=== PATIENT | female | born 1975 | race Caucasian/White ===

== ENCOUNTER → 2017-08-01 11:40 | Outpatient (CLI) | payer OTHER, SELFPAY ==
--- NOTE | 2017-08-01 11:40 | DT_ITS ---
This patient was seen during an EMR downtime July 25, 2017 - August 01, 2017. This patient may have a combination of paper and electronic documentation or all paper documentation. All documentation is viewable within the e-chart portion of mAPPn for each patient visit.
[2017-08-09 15:45] LABS: HPV Reflexed? NOT INDICATED
== END ==
PROVIDERS: Visit Provider Obstetrics & Gynecology
DX: Z12.4 Encounter for screening for malignant neoplasm of cervix (principal)
CPT/HCPCS: 88175; G0145

== ENCOUNTER → 2018-09-07 | Outpatient (CLI) | payer OTHER, SELFPAY ==
[2018-09-14 12:50] LABS: HPV Reflexed? NOT INDICATED
== END | disposition home or self-care (01) ==
LOC: LABSPEC 14:36
PROVIDERS: PCP Family Medicine; Visit Provider Obstetrics & Gynecology
DX: Z12.4 Encounter for screening for malignant neoplasm of cervix (principal)
CPT/HCPCS: 88175; G0145

== ENCOUNTER → 2018-10-25 | Outpatient (CLI) | payer OTHER, SELFPAY ==
--- NOTE | 2018-10-24 | IMM_PTH ---
PATIENT: DIANNE MARTE LOC: [facility] U#:[id number] AGE/SX: 43/F ROOM: RE10/25/[address]: Dr. Nicki Dyer MD : 1975 BED: DIS: 10/25/2018 SPEC #: [id number] RECD: 10/26/18 12:20 STATUS: HUEY REWiyl #: [id number] VIRAJ: 10/24/18 00:[address]: Nicki Dyer DEPT: IMMUNOHISTOCHEMISTRY RECD BY: Gifty Cruz ENTERED: 10/26/18 12:21 SP TYPE: IMMUNO OTHR DR: Dr. Kalen Santamaria MD Tissues: Uterine cervix, NOS Procedures: p16 (initial) KI-67 (add) PHYSICIAN & [place] [id number] SPECIMEN INFORMATION: Tissue Source: Cervical biopsy at 12 o'clock Clinical Info: OTIS Specimen Number: [id number] CPT code: 00521, 57175 METHODOLOGY: Deparaffinized sections of prefer/formalin-fixed tissue or PAP/DQ stained slides are incubated with monoclonal/polyclonal antibodies/oligonucleotide probes. Localization is made via biotin free immunoperoxidase method. Appropriate controls are performed and reacted as expected. Results on target cell population are indicated in the following table: RESULTS: ANTIBODY / CLONE RESULT P16 (E6H4) positive, focal and patchy Ki-67 (30-9) positive, low These tests were developed and their performance characteristics determined by [facility]. They may not have been cleared or approved by the U.S. Food and Drug Administration. The FDA has determined that such clearance or approval is not necessary. INTERPRETATION: Cervix, 12 o'clock, biopsy: Mild squamous dysplasia. LEONARDO:dax 10/26/18
--- NOTE | 2018-10-24 17:10 | CER_PTH ---
PATIENT: DIANNE MARTE LOC: [facility] U#:[id number] AGE/SX: 43/F ROOM: RE10/25/[address]: Dr. Nicki Dyer MD : 1975 BED: DIS: 10/25/2018 SPEC #: [id number] RECD: 10/25/18 10:35 STATUS: HUEY REYNAGA #: [id number] VIRAJ: 10/24/18 17:[address]: Nicki Dyer DEPT: SURGICAL PATHOLOGY RECD BY: Carlos Zaragoza ENTERED: 10/25/18 11:27 SP TYPE: CERV OTHR DR: Dr. Kalen Santamaria MD Tissues: Uterine cervix, NOS Procedures: Surgery Specimen Level IV HEADER OPERATION: Colposcopy PRE-OP DIAGNOSIS: LGSIL pap 09/04/18 TISSUE SUBMITTED: Cervical biopsy at 12 o'clock MICROSCOPIC DIAGNOSIS Cervix, 12 o'clock, biopsy: Mild squamous dysplasia with HPV changes (LGSIL and NIDHI I). Moderate acute and chronic inflammation. See comment. SJ:dax 10/26/18 COMMENT Immunohistochemistry ([id number]) for surrogate HPV marker (p16) supports the above diagnosis. MICROSCOPIC DESCRIPTION Slides are reviewed. GROSS DESCRIPTION Received in fixative is one container labeled with the patient's name and designated cervical biopsy at 12 o'clock. The specimen consists of two irregular fragments of light sandoval soft tissue that in aggregate measure 0.8 x 0.6 x 0.1 cm. The specimen is totally submitted in one cassette. / AM:dax 10/25/18 TC:5 CPT: 30085
== END | disposition home or self-care (01) ==
LOC: LABSPEC 11:06
PROVIDERS: Family Provider Family Medicine; PCP Family Medicine; Referring Provider Obstetrics & Gynecology; Visit Provider Obstetrics & Gynecology
DX: N87.0 Mild cervical dysplasia (principal)
CPT/HCPCS: 88305; 88341; 88342

== ENCOUNTER → 2019-09-11 | Outpatient (CLI) | payer OTHER, SELFPAY ==
[2019-09-17 14:08] LABS: HPV Genotype 16, Aptima Negative (Negative)
[2019-09-17 15:25] LABS: HPV APTIMA, High Risk Positive (Negative); HPV Genotype 18,45 Aptima Negative (Negative)
== END | disposition home or self-care (01) ==
LOC: LABSPEC 13:22
PROVIDERS: PCP Family Medicine; Visit Provider Obstetrics & Gynecology
DX: Z12.4 Encounter for screening for malignant neoplasm of cervix (principal)
CPT/HCPCS: 87624; 88175; G0145

== ENCOUNTER → 2019-10-10 15:30 | Outpatient (CLI) | payer OTHER, SELFPAY ==
--- NOTE | 2019-10-10 | IMM_PTH ---
PATIENT: DIANNE MARTE LOC: [facility] U#:[id number] AGE/SX: 49/F ROOM: RE10/10/[address]: Dr. Cyndy Vera MD : 1975 BED: DIS: SPEC #: [id number] RECD: 10/12/19 11:21 STATUS: HUEY REWily #: [id number] VIRAJ: 10/10/19 00:[address]: Cyndy Eduardo DEPT: IMMUNOHISTOCHEMISTRY RECD BY: Gifty Cruz ENTERED: 10/12/19 11:23 SP TYPE: IMMUNO OTHR DR: Dr. Kalen Santamaria MD Tissues: A - Uterine cervix, NOS B - Uterine cervix, NOS Procedures: p16 (initial) KI-67 (add) PHYSICIAN & INSTITUTION [place] [id number] SPECIMEN INFORMATION: Tissue Source: A - Cervical biopsy at 6 o'clock, B - Cervical biopsy at 12 o'clock Clinical Info: Positive HR/HPV, friable cervix Specimen Number: [id number] A & B CPT code: 03564 x2, 63941 x2 METHODOLOGY: Deparaffinized sections of prefer/formalin-fixed tissue or PAP/DQ stained slides are incubated with monoclonal/polyclonal antibodies/oligonucleotide probes. Localization is made via biotin free immunoperoxidase method. Appropriate controls are performed and reacted as expected. Results on target cell population are indicated in the following table: RESULTS: ANTIBODY / CLONE RESULT Block A P16 (E6H4) positive, focal minimal patchy staining Ki-67 (30-9) negative Block B P16 (E6H4) negative Ki-67 (30-9) negative These tests were developed and their performance characteristics determined by [facility]. They may not have been cleared or approved by the U.S. Food and Drug Administration. The FDA has determined that such clearance or approval is not necessary. The above immunohistochemical/dualISH markers are ordered and reviewed by the Pathologist. INTERPRETATION: A. Cervix at 6 o'clock, biopsy: Negative for dysplasia. B. Cervix at 12 o'clock, biopsy: Negative for dysplasia. LEONARDO:dax 10/15/19
--- NOTE | 2019-10-10 15:30 | CER_PTH ---
PATIENT: DIANNE MARTE LOC: [facility] U#:[id number] AGE/SX: 49/F ROOM: RE10/10/[address]: Dr. Cyndy Vera MD : 1975 BED: DIS: SPEC #: [id number] RECD: 10/10/19 17:09 STATUS: HUEY JUHI #: [id number] VIRAJ: 10/10/19 15:[address]: Cyndy Eduardo DEPT: SURGICAL PATHOLOGY RECD BY: Carlos Zaragoza ENTERED: 10/11/19 09:32 SP TYPE: CERV OTHR DR: Dr. Kalen Santamaria MD Tissues: A - Uterine cervix, NOS B - Uterine cervix, NOS C - Endometrial cavity Procedures: Surgery Specimen Level IV HEADER OPERATION: Colposcopy PRE-OP DIAGNOSIS: Positive HR/HPV; friable cervix, Lugol's resistance TISSUE SUBMITTED: A - Cervical biopsy at 6 o'clock, B - Cervical biopsy at 12 o'clock, C - ECC MICROSCOPIC DIAGNOSIS A. Cervix, 6 o'clock, biopsy: Moderate to marked chronic inflammation, mild acute inflammation and reactive epithelial changes. Negative for dysplasia. See comment. B. Cervix, 12 o'clock, biopsy: Moderate to marked chronic inflammation, mild acute inflammation and reactive epithelial changes. Negative for dysplasia. See comment. C. ECC: Fragments of benign endocervical epithelium, blood and mucous, negative for dysplasia. Scant strips of benign endometrial epithelium. LEONARDO:dax 10/12/19 COMMENT A & B. Immunohistochemistry ([id number]) for surrogate HPV marker (p16) supports the above diagnosis. Please make reference to previous specimen ([id number]) cervix, 12 o'clock, biopsy with diagnosis of mild squamous dysplasia with HPV changes. MICROSCOPIC DESCRIPTION Slides are reviewed. GROSS DESCRIPTION A - Received in fixative is one container labeled with the patient's name and designated cervical biopsy at 6 o'clock. The specimen consists of multiple irregular fragments of light sandoval soft tissue that in aggregate measure 1 x 0.4 x 0.1 cm. The specimen is totally submitted in one cassette. B - Received in fixative is one container labeled with the patient's name and designated cervical biopsy at 12 o'clock. The specimen consists of multiple irregular fragments of light sandoval soft tissue that in aggregate measure 0.5 x 0.5 x 0.1 cm. The specimen is totally submitted in one cassette. C - Received in fixative is one container labeled with the patient's name and designated ECC. The specimen consists of multiple fragments of hemorrhagic soft tissue that in aggregate measure 0.3 x 0.3 x 0.1 cm. The specimen is totally submitted in one cassette. / SJ:rg 10/11/19 TC:3 CPT: 75677 x3
== END ==
PROVIDERS: PCP Family Medicine; Referring Provider Obstetrics & Gynecology; Visit Provider Obstetrics & Gynecology
DX: N72 Inflammatory disease of cervix uteri (principal)
CPT/HCPCS: 88305; 88341; 88342

== ENCOUNTER → 2020-02-19 11:35 | Outpatient (CLI) | payer OTHER, SELFPAY ==
[2020-02-19 15:05] LABS: Hematocrit 41.7 % (37-47); Hemoglobin 13.3 g/dL (12.0-15.0); Mean Corp Hgb Conc 31.9 g/dL (32-36); Mean Corpuscular Hgb 32.6 pg (27.0-32.0); Mean Corpuscular Volume 102.2 fL (81-99); Mean Platelet Vol. 9.5 fl (6.2-12.0); Platelet Count 339 K/mm3 (150-450); RBC Distribution Width CV 12.2 % (11.6-14.6); RBC Distribution Width SD 46.2 fl (35.1-43.9); Red Blood Count 4.08 M/mm3 (4.2-5.4); White Blood Count 8.1 K/mm3 (4.4-11.0)
== END ==
PROVIDERS: PCP Family Medicine; Referring Provider Family Medicine; Visit Provider Family Medicine
DX: K92.2 Gastrointestinal hemorrhage, unspecified (principal)
CPT/HCPCS: 36415; 85027

== ENCOUNTER 2020-07-24 14:49 | Outpatient (RCR) | payer OTHER, SELFPAY | END 2020-09-12 23:59 | LOC: IMMUN 14:49 | PROVIDERS: PCP Family Medicine; Visit Provider Family Medicine | DX: Z23 Encounter for immunization (principal) | CPT/HCPCS: 0001A; 91300 ==

== ENCOUNTER → 2020-09-30 15:45 | Outpatient (CLI) | payer OTHER, SELFPAY ==
[2020-10-03 22:13] LABS: HPV APTIMA, High Risk Negative (Negative)
== END ==
PROVIDERS: PCP Family Medicine; Visit Provider Obstetrics & Gynecology
DX: Z12.4 Encounter for screening for malignant neoplasm of cervix (principal)
CPT/HCPCS: 87624; 88175; G0145

== ENCOUNTER → 2022-03-16 | Outpatient (CLI) | payer OTHER, SELFPAY ==
--- NOTE | 2022-03-16 14:49 | RAD_ITS ---
STUDY: X-RAY - RIGHT FOOT CLINICAL: Female, 46 years old. pain in right toes TECHNIQUE: 3 view(s) of the foot. COMPARISON: None. FINDINGS: Normal talus, calcaneus, and tarsal bones. Normal visualized subtalar, talonavicular, calcaneocuboid, tarsal and tarsometatarsal articulations. Normal metatarsi. There is degenerative arthrosis of the metatarsophalangeal joint of the hallux . Normal tibial and fibular sesamoid bones. Normal interphalangeal joint of the great toe. Normal phalanges of the great toe. Normal second through fifth metatarsophalangeal joints. Normal interphalangeal joints and phalanges of the lesser toes. The soft tissue structures are unremarkable. RAD/Foot min 3 Views IMPRESSION: DJD great toe Electronically Signed: William Macdonald MD at 20:46 EST ,
[2022-03-16 18:27] LABS: Absolute Lymphocyte Count 2.63 X10^3/uL (0.83-4.51); Basophil# 0.07 X10^3/uL; Basophil% 0.7 % (0-1); Eosinophil# 0.34 X10^3/uL; Eosinophils% 3.5 % (0-5); Erythrocyte Sedimentation Rate 5 mm/hr (0-30); Hematocrit 39.6 % (37-47); Hemoglobin 13.3 g/dL (12.0-15.0); Lymphocyte # 2.63 X10^3/ul (0.83-4.51); Lymphocyte % 27.4 % (19-41); Mean Corp Hgb Conc 33.6 g/dL (32-36); Mean Corpuscular Hgb 33.8 pg (27.0-32.0); Mean Corpuscular Volume 100.8 fL (81-99); Mean Platelet Vol. 9.8 fl (6.2-12.0); Monocyte# 0.57 X10^3/uL; Monocyte% 5.9 % (0-10); NRBC Flagged by Analyzer 0 % (0-5); Neutrophil # 5.97 X10^3/uL (2.7-7.7); Neutrophil % 62.2 % (47-70); Platelet Count 298 K/mm3 (150-450); RBC Distribution Width CV 12.4 % (11.6-14.6); RBC Distribution Width SD 46.5 fl (35.1-43.9); Red Blood Count 3.93 M/mm3 (4.2-5.4); White Blood Count 9.6 K/mm3 (4.4-11.0)
[2022-03-16 19:12] LABS: Anion Gap 11 (5-15); BUN 13 mg/dL (7-18); BUN/Creat Ratio 19.1 RATIO (10-20); CRP 3.56 mg/L (0.0-3.0); Calcium,Total 8.9 mg/dL (8.5-10.1); Chloride 103 mmol/L (98-107); Cholesterol 196 mg/dL (200); Creatinine, Serum 0.68 mg/dL (0.55-1.02); EST Glomerular Filtration Rate 99 mL/min (>60); Est Glom Filt Rate - Afr Amer 120 mL/min (>60); Glucose 104 mg/dL (74-106); High Density Lipoprotein 77 mg/dL; Potassium 3.3 mmol/L (3.5-5.1); Sodium Level 138 mmol/L (136-145); Thyroid Stim Hormone (TSH) 0.95 uIU/mL (0.358-3.74); Triglycerides 129 mg/dL; Very Low Density Lipoprotein 26 mg/dL (5-40)
[2022-03-18 17:37] LABS: ANTINUCLEAR ANTIBODIES DIRECT Negative (Negative)
== END | disposition home or self-care (01) ==
PROVIDERS: PCP Family Medicine; Referring Provider Family Medicine; Visit Provider Family Medicine
DX: Z00.00 Encounter for general adult medical examination without abnormal findings (principal); M79.674 Pain in right toe(s); M25.50 Pain in unspecified joint; Z13.220 Encounter for screening for lipoid disorders
CPT/HCPCS: 36415; 73630; 80048; 80061; 84443; 85025; 85652; 86038; 86140; 86431

== ENCOUNTER 2025-01-21 08:00 | Outpatient (RCR) | payer OTHER, SELFPAY ==
--- NOTE | 2025-01-21 09:00 | BH.SGPN.GN ---
Behaviors/Verbalizations/Mental Status: [] Eye contact is good. Motor activity is appropriate. Appearance is casual. Speech is Appropriate. Mood is depressed and anxious. Affect is congruent. Thoughts are linear and logical. No evidence of psychosis. Reviewed daily check in sheet and no reports of suicidal ideations Client Response/Progress/Benefit: [] Pt participated when prompted. Attentive. Shared with the group that today is her first day in IOP level of care. Tearful as she was checking in. Briefly introduced herself and her recent mental health struggles which have lead to FMLA from work. No progress noted as today was her first day. Group provided support and guidance on what to expect for her first day which was beneficial. Will continue in IOP to prevent decompensation, stabilize mood, increase healthy coping, and improve functioning to return to work. Narrative Note: []
--- NOTE | 2025-01-21 09:03 | BH.COMM_ITS ---
Communication Note Communication with Client Communication Note: Met with pt to complete initial paperwork. Discussed case with Dr. Vicente and pt will be admitted to [facility] tx with a diagnosis of F41.1 ROMIE.
--- NOTE | 2025-01-21 09:03 | BH.COMM ---
Communication Note Communication with Client Communication Note: Met with pt to complete initial paperwork. Discussed case with Dr. Vicente and pt will be admitted to [facility] tx with a diagnosis of F41.1 ROMIE.
--- NOTE | 2025-01-21 10:10 | BH.SGPN.GN ---
Behaviors/Verbalizations/Mental Status: []Pt alert and oriented, casual appearance. Eye contact good. Motor activity appropriate. Speech within normal limits. Affect congruent, mood anxious. Thoughts linear, logical, no signs of hallucinations or delusions. Client Response/Progress/Benefit: [] Pt responded well to session AEB sharing and listening attentively to others. Group provided examples of types of support (professional, pets, hobbies, community, spouse, melo, etc) as well as benefits of having social support, including: validation, get perspective, and accountability. Pt also participated in group discussion regarding the barriers to accessing support. Pt identified positive supports to include: dad, grandma, friends, animals, and nature. Pt participated in experiential activity illustrating the impact communication, boundaries, and patience play in creating healthy support systems. Pt appeared to benefit from increased knowledge of the benefits of social support and greater self-awareness. Pt to continue IOP to promote healthy coping skills, challenge distorted thoughts, and prevent decompensation.
--- NOTE | 2025-01-21 11:15 | BH.SGPN.GN ---
Behaviors/Verbalizations/Mental Status: [] Client alert and oriented, casually dressed and groomed. Eye contact good. Motor activity appropriate. Speech within normal limits. Affect congruent, mood anxious. Thoughts linear, logical, no signs of hallucinations or delusions. Client Response/Progress/Benefit: [] Client was an active participant throughout AEB contributing to discussion, providing personal examples, and taking notes. Client processed emotions felt in the activity and how they coped in the moment. Client provided input during discussion on the types of support our supports can provide. Client reflected on the types of support their current support system provides. Reported after identifying what type of supports they receive; they gained awareness that they could benefit from more tangible and emotional supports. Client identified steps to achieve this by making a list of what she needs and using opposite action to ask for these needs to be met. Client seemed to benefit from identifying the type of support client needs to work on improving. Client recommended to continue IOP tx to prevent decompensation, reduce racing thoughts, and increase emotional regulation skills. Narrative Note: []
--- NOTE | 2025-01-23 09:00 | BH.SGPN.GN ---
Behaviors/Verbalizations/Mental Status: [] Pt alert and oriented, Casually dressed and groomed. Eye contact good. Motor activity appropriate. Speech within normal limits. Affect congruent, mood depressed. Thoughts linear, logical, no signs of hallucinations or delusions. Reviewed pt?s symptom tracker today, denies suicidal ideation, plan, and intent.01/23/25 Client Response/Progress/Benefit: []Pt was an active participant in group discussions. Attentive. Per patients daily symptom tracker, pt indicates a 3/5 for depression and a 4/5 for anxiety, with 5 being severe. Pt struggled to come up with mental health positives, stating that this was her second day in group. She was able to come up with two mental health positives after some encouragement from the therapist. Pt's mental health positives were showing up for group, and her who is supportive of her coming to IOP. Pt reported some marital struggles in the past, stating that her and her almost , so it was important to her to have his support. Pt's stressor was feeling stuck and struggling with deciding whether or not she is going to go back to work after IOP. Pt stated that she does not want to go back to her job, but worries about finances and her future if she does not. Pt was supportive and attentive to others in the group. Pt seemed to benefit from support from peers. Will continue IOP tx to promote healthy coping mechanisms, decrease negative thinking patterns, and prevent decompensation.
--- NOTE | 2025-01-23 10:10 | BH.SGPN.GN ---
Behaviors/Verbalizations/Mental Status: [] Eye contact is good. Motor activity is appropriate. Appearance is casual. Speech is Appropriate. Mood is anxious. Affect is congruent. Thoughts are linear and logical. No evidence of psychosis. Client Response/Progress/Benefit: [] Pt was an active participant and responded well to session AEB input and examples during group activity. Group discussed and practiced methods of reframing cognitive distortions. Client participated in identifying cognitive distortions when examples were provided. Client discussed in group the different strategies to overcome the distortions. Client identified cognitive distortion they used most often and made plan to identify and challenge thoughts that contribute to it as homework over the next couple of days. Will continue tx to decrease anxious avoidance, improve healthy coping skills, and prevent decompenation. Narrative Note: []
--- NOTE | 2025-01-23 11:10 | BH.SGPN.GN ---
Behaviors/Verbalizations/Mental Status: []Eye contact is good. Motor activity is appropriate. Appearance is casual. Speech is Appropriate. Mood is hopeful and anxious. Affect is congruent. Thoughts are linear and logical. No evidence of psychosis. Client Response/Progress/Benefit: [] Pt was an active participant and responded well to session AEB input and examples during group activity. Group discussed and practiced methods of reframing cognitive distortions. Pt participated in identifying cognitive distortions when examples were provided. Pt discussed in group the different strategies to overcome the distortions. Pt identified cognitive distortion they use most often which is catastrophizing and pt reports plan to continue working on reframing these thoughts. Pt did well in small group during experiential activity and helped group identify answers. Will continue tx to prevent decompensation, improve daily functioning, and gain healthy coping skills. Narrative Note: []
--- NOTE | 2025-01-23 14:34 | BH.MTP_ITS ---
Master Treatment Plan Patient Information Program Physician:: Dr. Guillermina Vicente Primary Therapist:: Dulce STRICKLAND Psychiatric Diagnoses Psychiatric Diagnoses:: ROMIE F 41.1; MDD, recurrent, moderate, without psyhchosis. Diagnosis Code(s):: F41.1 Estimated LOS Estimated LOS (in weeks):: 6 Problem/Goal #1 Problem/Goal #1 Stated Goal:: Will reduce anxiety and panic symptoms through increasing emotional regulation and distress tolerance skills Description of Barriers: Pt reports history of trauma in childhood and she does not speak with her mother as a result. Pt feels like a failure a lot and often criticizes herself for mistakes/setbacks. Pt has a lot of work and family stress currently. Pt admits to using alcohol to cope with stressors. Functional Impact: Pt is a 49-year-old female with a history of ROMIE and MDD who was referred by her PCP due to worsening anxiety and depression over the past few months. Pt has been off work on [employer] since 01/08/25 as pt is not able to function. Pt currently endorses a depressed mood, worthlessness, negative thinking, and crying spells. Pt also endorses panic attacks, constant worry, racing thoughts, issues with concentration, issues with sleep, and wishing she could not exist due to her constant anxiety/ruminations. Pt noted that she feels like she is failing in multiple areas of her life. Goal Relevant Strengths/Supports: Pt is connected with a PCP and she recently got established with [facility] for individual therapy. Pt reports being motivated and ready to make changes. Objectives Objective #1: Stated Objective: Pt will increase ability to manage stressors and anxiety by gaining 2-3 distress tolerance skills. Interventions: Through group and individual therapy, pt will learn various coping skills to help manage stress and anxiety. Therapist will utilize DBT distress tolerance skills to increase awareness and give pt tools to more ef fectively manage anxiety. Therapist will provide psychoeducation on emotional regulation and help pt identify unhealthy coping skills he wants to change. Discharge Criteria: Pt will have accomplished this goal when can report improved ability to manage stressors and identify at least 2 distress tolerance skills. Target Date: 03/04/25 Review Date: 02/11/25 Status: open Objective #2: Stated Objective: Pt will identify 2-3 anxiety and panic triggers and 2 coping skills to use when feeling anxious or overwhelmed to manage anxiety as shown by reducing DSM-5 scores for anxiety Interventions: Therapist will provide education on anxiety, avoidance behaviors, and maintenance cycles. Therapist will help pt explore personal symptoms and warning signs of anxiety and irritability. Therapist will teach pt coping skills to improve emotional regulation, mindfulness, and distress tolerance to help pt cope with anxiety in the moment. Discharge Criteria: Pt will have accomplished this goal when he can identify at least 2 triggers and report using 2 coping skills to manage anxiety and irritability. Additionally, pt will have accomplished this goal AEB reduction of DSM-5 scores for anxiety. Target Date: 03/04/25 Review Date: 02/11/25 Status: open Problem/Goal #2 Problem/Goal #2 Stated Goal:: Pt will decrease depressive symptoms, inappropriate guilt, worthlessness, and negative self-talk. Description of Barriers: Pt reports history of trauma in childhood and she does not speak with her mother as a result. Pt feels like a failure a lot and often criticizes herself for mistakes/setbacks. Pt has a lot of work and family stress currently. Pt admits to using alcohol to cope with stressors. Functional Impact: Pt is a 49-year-old female with a history of ROMIE and MDD who was referred by her PCP due to worsening anxiety and depression over the past f ew months. Pt has been off work on FMLA since 01/08/25 as pt is not able to function. Pt currently endorses a depressed mood, worthlessness, negative thinking, and crying spells. Pt also endorses panic attacks, constant worry, racing thoughts, issues with concentration, issues with sleep, and wishing she could not exist due to her constant anxiety/ruminations. Pt noted that she feels like she is failing in multiple areas of her life. Goal Relevant Strengths/Supports: Pt is connected with a PCP and she recently got established with [facility] for individual therapy. Pt reports being motivated and ready to make changes. Objectives Objective #1: Stated Objective: Pt will learn and utilize 2-3 healthy coping strategies to better manage depressive symptoms as shown by a decrease of DMS-5 symptoms for depression. Interventions: Through group and individual sessions, therapist will help pt identify triggers and warning signs of depression and guilt including emotional, physical, and behavioral changes. Therapist will teach pt various coping skills to manage symptoms and give pt tangible resources to use to regulate emotions. Therapist will use cognitive restructuring techniques and help pt gain awareness of negative thoughts that reinforce guilt and depression. Therapist will provide psychoeducation on maintenance cycles and help pt learn ways to break unhealthy maintenance cycles. Therapist will help pt incorporate behavioral activation and assist pt in setting SMART goals. Discharge Criteria: Pt will have met this goal when can report learning and using at least 2 coping skills to manage depressive symptoms and reduce isolation. Additionally, pt will have met this goal when pt's DSM-5 scores for depression decrease. Target Date: 03/04/25 Review Date: 02/11/25 Status: open
--- NOTE | 2025-01-23 14:35 | BH.MDN_ITS ---
Multi-Disciplinary Note Note 30-min Individual: Time Started:: 12:05 Date: 01/23/25 Purpose of session/treatment goals addressed:: To gather information on pt's current stressors, symptoms, triggers, history, and tx goals. Another goal was to build rapport and provide emotional support. Eye Contact:: Good Motor Activity:: Appropriate Appearance:: Neat Speech:: Appropriate Mood:: Anxious and Depressed Affect:: Constricted Thoughts:: Linear, Logical and No evidence of hallucinations/delusions noted Staff Interventions:: rapport building, strengths perspective, treatment planning and goal setting Client Response:: Pt responded well to session, open to meeting with therapist. Pt reports she feels that group will be helpful, and she is already connecting a lot with the topics/what peers are sharing. Pt is currently on leave from work which pt stated she feels anxious about because what if people clinical team lead me. However, pt shared she is already working on challenging this and not letting that keep pt from getting the help she deserves. Pt reports she has had anxiety most of her life and she is able to see signs now. Pt noted having a lot of excessive worry even when her children were small. Pt also feels that her unmanaged anxiety was a contributing factor to why her first marriage ended. Pt has two children from her first marriage and in her current marriage she has three stepchildren. Pt is currently and she described her as supportive, but they have had stress in their life lately. Pt shared there has been tension and conflict because of pt's stepchildren. Pt also has a lot of primary work stress that has contributed to her worsening mental health symptoms. 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 Pt identified her IOP tx goals to be reduce guilt and negative thinking towards self, reduce use of alcohol as a coping mechanism, and figure out what path she wants to take with her career. Risks/Concerns:: Pt denies any active suicidal ideation, plan, or intent. Pt denies any thoughts of . Progress Toward Goals/Plan:: Pt's second day of IOP tx and pt reports she is finding benefit in the group setting already. Pt stated she is finding comfort in finding out there's people who think like me out there. Pt noted that she does not have a lot of therapy experience, she shared she tried two sessions and did not go back. Pt was receptive to goal setting and she has already connected an outpatient provider to establish care following IOP discharge in 6-8 weeks. Pt will continue IOP tx to prevent decompensation, improve daily functioning, and gain healthy coping skills. Time Stopped:: 12:25
--- NOTE | 2025-01-25 07:59 | BH.PSY.EVA_ITS ---
Intake Intake Visit Reasons: [facility] Care anxiety and depression Medications ?Medication ?Instructions ?Recorded ?Confirmed ?Type bupropion HCl 150 mg 24 hr tablet, 150 mg PO DAILY 07/1501/25/25 History extended release (Wellbutrin XL) citalopram 40 mg tablet 40 mg DAILY 01/25/25 Histor y hydroxyzine HCl 25 mg tablet 25 mg PO QHS PRN sleep an d anxiety 01/25/25 01/25/25 History omeprazole .ROUTE 01/25/25 History HPI () History of Present Illness History provided by: patient Chief complaint: Establish care anxiety and depression HPI: Dionne is a 49y/o female who presented to [facility] IOP program for further evaluation and treatment of decompensation of anxiety and depression. Patient reportedly has a history of anxiety and depression but presently notes that this is the worst her mental health has been. She has recently had decompensation of her anxiety and depression which led her to go on FMLA from work on 01/08/2025. She was referred to IOP by her PCP Dr. Rodriguez. She notes that her mental health has been declining over the past year and a half. 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 Has been an educator for 24 years and did not feel like she was meeting expectations for her students. 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 Began calling off work in November due to difficulty getting out of bed from her anxiety. Started FMLA paperwork 12/31/2024 because she longer felt she could go back to work due to her mental health. She has had problems with depressed and anxious mood, difficulty sleeping, thoughts of wishing she did not exist. Of note she has been trying to cut down on alochol recently and reports for the past 1-1/2 years she was drinking 3-4 beers about 2 to 3 days during the week and much more on the weekends. Does note additional stressors being 's son and her oldest son as well. Today reports feeling a little bit better. Trying to stay more positive and using coping skills. Sleeping is poor but sometimes takes hydroxyzine at night and it helps her sleep but without it hasn't been sleeping well. Will wake up and be so anxious and worry about everything and not be able to fall back asleep. 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 Reports she is taking citalopram 40mg, which is helpful but wasn't quite enough so her PCP started wellbutrin but she only started taking it consistently the past 4 days. Anhedonia/Decreased interest: +anhedonia Appetite: Pretty normal Sleep: Poor unless she takes hydroxyzine Energy: Poor energy relative to her baseline Concentration: Fine Memory: Fine Crying spells: Yes, usually several times a day SI: No HI: No AH: No VH: No Psychosis: No Kasey: No Anxiety: Severe anxiety about everything, fears about the unknown, anxiety about her job, anxiety about her family Panic attacks: Will have discrete bouts of anxiety OCD: Writes many lists and will restart them if the writing doesn't match, very perfectionistic, will stay up until 2am cleaning Eating d/o hx: No PTSD: Denies hx of nightmares or flashbacks Current psychiatric medications: Citalopram 40mg, bupropion XL 150, hydroxyzine 25mg prn Side effect concerns: No Past psychiatric treatment Hx: -First age experiencing symptoms: Around 16 years ago she had her first panic attack and started medication -Psychiatrist: No -Therapist: Recently established with [facility], will start Tuesday at 230 -Psychiatric hospitalizations: None -Suicide attempts: No -Medication trials: Possibly a different anxiety medication many years ago but she's unsure Medical Hx: -Medical problems: GERD -Surgeries: Appendix out in high school -Allergies: No -Medications: Omeprazole for reflux Substance use Hx: -Alcohol: More than I should. Uses it as unhealthy coping skills. Trying to cut down on it. Usually drinks about 4 drinks a couple times a week -Drugs: No -Tobacco use: No Family Hx: -Mental illness: Mother had mental health problems and a lot of paranoia but she doesn't believe she was ever diagnosed with anything -Suicide attempts or completions: No -Substance Use: No -General medical conditions: Denies Psychosocial: -Born/raised: Born and lived in [place] until kindergarten and then moved to [place] and then [place] and then ultimately back here. Moved around a lot because her dad is in the -Childhood: Had a very difficult time with her mother, mother was accusing her of having an affair with her dad's boss and would drive past his house looking for her car, patient denies that this ever happened and that she was only 16 years old -Parents: Hasn't talked to mom since she was 17 because they had a very unhealthy relationship, has a very good relationship with her father, they talk multiple times a day -Siblings: Has a younger sister who is also a teacher and lives in [place], 3 step brothers -Current living situation and location: Lives in [place] with her and his 27 year old son who is currently living in their upstairs. He recently broke his leg due to a motorcycle accident and her is waiting on him hand and foot which has caused a lot of stress -Marital status: , currently on her second marriage, he is in his 60's. Has been from previous has been 14 years -Children: He has 3 children, she has 2 children, a son and daughter. She gets along with her daughter well, her son is 25 and doesn't have a good relationship with him after her divorce. 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 Came to her new job in September and reportedly took on the jobs of 3 behavioral specialists and is struggling with his current job. Has been in the field for 24 years. 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 Now looking for alternative jobs she can get with her degree -Taoism affiliation: Zoroastrianism - hx: No -Access to guns: collects guns -Legal problems: DUI 5 years ago, had to do classes for it Medical ROS: General: Denies fever HENT: Denies headache EYES: Denies acute changes in vision Resp: denies shortness of breath Cardiac: Denies chest pain GI: denies changes in bowel, denies nausea/vomiting : Denies changes in urination MSK: Denies weakness Neuro: Denies any numbness/tingling Heme: Denies any bleeding or bruising Skin: Denies rashes Psychiatric: As above Exam () Mental Status Exam- Psych () Appearance casually dressed, adequately groomed and no apparent distress Attitude cooperative and calm Activity/Motor Behavior MSE activity/motor behavior finding no adventitious movements Speech regular rate and regular volume Mood other (Tearful) Affect full range Thought Process linear and logical Thought Content no delusions and no hallucinations Suicidal Ideation none Homicidal Ideation none Attention intact Concentration intact Sensorium/Orientation awake and alert Memory/Cognition intact Insight fair Judgement fair Assessment & Plan () Assessment & Plan (1) ROMIE (generalized anxiety disorder): Plan: High levels of anxiety across multiple situations impacting her functioning and is associated with sleep disturbance, fatigue. She is presently on 40mg of Celexa and has historically found this helpful, just started taking Wellbutrin over the past 4 days more consistently. Sometimes this can increase anxiety but does not seem to be the case at this time as she reports she is doing little bit better. Will continue patient on the 40 of citalopram and 150 of BuSpar, can always uptitrate if needed or adjust regimen moving forward if needed. Plan The patient will begin IOP in Behavioral Health at [facility]. The program's structure, support, education, and therapy aim to prevent deterioration of symptoms and avoid the need for PHP or inpatient hospitalization. I have a reasonable expectation that the patient will make practical improvements in their presenting symptoms and will be discharged to a lower level of care. Charges/Coding Multi Select Codes Behavior Health Behavior Health Psychiatric Evaluation: 29917 Psych Diag Exam w/ Medical Services
--- NOTE | 2025-01-25 08:53 | BH.DR.ITP ---
Initial Treatment Plan Patient Information Visit Information: ADMISSION DATE: EXPECTED LOS: 6-8 weeks Diagnoses:: ROMIE Problems/Symptoms Problem #1:: ROMIE Symptom:: High levels of anxiety across multiple situations impacting her functioning and is associated with sleep disturbance, fatigue
--- NOTE | 2025-01-25 09:00 | BH.SGPN.GN ---
Behaviors/Verbalizations/Mental Status: [] Pt alert and oriented, Casually dressed and groomed. Eye contact good. Motor activity appropriate. Speech within normal limits. Affect congruent, mood anxious. Thoughts linear, logical, no signs of hallucinations or delusions. Reviewed pt?s symptom tracker today, denies suicidal ideation, plan, and intent.01/25/25 Client Response/Progress/Benefit: []Pt was an active participant in group discussions. Attentive. Per patients daily symptom tracker, pt indicates a 2/5 for depression and a 2/5 for anxiety, with 5 being severe. Pt's first mental health positive was not drinking when she was home alone as a coping mechanism to deal with her anxiety, stating that she does not have a problem with drinking, but will use it as her first line of defense when feeling anxious. Pt stated that she knew that drinking would not really help her deal with her anxiety. Pt's other mental health win was going out to dinner with friends, and driving into town without getting too anxious. Pt's stressor is being off of work, stating that her coworkers are getting overwhelmed due to her being on leave, making her feel anxious and guilty. Pt was supportive and attentive to others in the group. Pt seemed to benefit from support from peers. Will continue IOP tx to promote healthy coping mechanisms, decrease negative thinking patterns, and prevent decompensation.
--- NOTE | 2025-01-25 10:15 | BH.SGPN.GN ---
Behaviors/Verbalizations/Mental Status: [] Eye contact is good. Motor activity is appropriate. Appearance is casual. Speech is Appropriate. Mood is euthymic. Affect is congruent. Thoughts are linear and logical. No evidence of psychosis. Client Response/Progress/Benefit: [] Client was an active participant during interactive group discussions. Attentive during psychoeducation on the six types of boundaries (physical, emotional, intellectual, sexual, time, and material). Along with peers contributed to interactive discussion on defining what a boundary is in mental health. Client along with peers identified challenges to setting boundaries which included; fear of other's response, guilt, fear of rejection, fear of disappointing the other person, feeling like one is unworthy to set boundaries, etc. Client along with peers identified the benefits to setting boundaries such as increased confidence, decreased stress, increased time for self-care, and better quality of life. Group discussed the mental health benefits to establishing boundaries at work, school, and home. Client benefited from increased awareness and insight on the importance/benefit to setting health boundaries. Will continue in IOP to prevent decompensation, stabilize anxiety, and improve functioning. Narrative Note: []
--- NOTE | 2025-01-25 11:15 | BH.SGPN.GN ---
Behaviors/Verbalizations/Mental Status: [] Eye contact is good. Motor activity is appropriate. Appearance is casual. Speech is Appropriate. Mood is euthymic. Affect is congruent. Thoughts are linear and logical. No evidence of psychosis. Client Response/Progress/Benefit: [] Client responded well to session AEB listening attentively to peers, providing input, as well as taking notes throughout. Participated in group discussion brainstorming various strategies for improving healthy boundary setting. Client reports wanting to begin using skill of writing pros and cons list to improve overall ability to establish and maintain healthy boundaries. Seemed to benefit from increased awareness of how different boundary styles can impact mental health. Will continue IOP tx to increase consistent application of skills, increase self-care and anxiety management, and prevent decompensation. Narrative Note: []
--- NOTE | 2025-01-30 09:05 | BH.SGPN.GN ---
Behaviors/Verbalizations/Mental Status: [] Eye contact is good. Motor activity is appropriate. Appearance is casual. Speech is Appropriate. Mood is depressed and anxious. Affect is congruent. Thoughts are linear and logical. No evidence of psychosis. Reviewed daily check in sheet and no reports of suicidal ideations Client Response/Progress/Benefit: [] Pt was an active participant in group discussions. Attentive. Tearful during her check-in. ? I don?t know what I?m doing with my life?. Shared erratic emotions and numerous situational stressors ?that I?m not handling well?. According to pt she benefits from IOP and group support which keeps her from isolation. ? It?s nice to talk with people who are like me?. Limited progress noted. Benefited from group support, encouragement, and feedback. Will continue in IOP to prevent decompensation, increase healthy coping, and improve functioning Narrative Note: []
--- NOTE | 2025-01-30 10:15 | BH.SGPN.GN ---
Behaviors/Verbalizations/Mental Status: []Eye contact is good. Motor activity is appropriate. Appearance is neat. Speech is Appropriate. Mood is euthymic. Affect is congruent. Thoughts are linear and logical. No evidence of psychosis Client Response/Progress/Benefit: [] Pt was an active participant in group discussions AEB listening attentively to others and providing feedback at times. Participated in and was engaged during experiential activity. Able to relate activity to group topic of FOF. Engaged during interactive discussion on what failure means to the group in which peers identified and defined failure. Group was able to identify impact of fear of failure on mental health. Attentive during interactive discussion on the role that FOF plays in mental wellness, depression, anxiety, and growth. Pt reported fear of failure has kept pt from leaving her job to try something new. Benefited from increased awareness of how the role that FOF plays in mental health and decision-making. Will continue in IOP to prevent decompensation, gain healthy coping skills, and improve daily functioning. Narrative Note: []
--- NOTE | 2025-01-30 11:15 | BH.SGPN.GN ---
Behaviors/Verbalizations/Mental Status: []Client alert and oriented, casually dressed and groomed. Eye contact good. Motor activity appropriate. Speech within normal limits. Affect constricted, mood depressed. Thoughts linear, logical, no signs of hallucinations or delusions. Client Response/Progress/Benefit: [] Pt responded well to session, engaged in the experiential activity and attentive throughout group processing. Pt reported fear of failure has kept Pt from quitting drinking and going back to school. Pt completed fear of failure worksheet and was able to identify thoughts and behaviors that reinforce personal fear of failure including all or nothing thinking. Pt participated in small group discussion regarding strategies to overcome fear of failure. Identified wanting to practice telling herself ?I?m not the star in other people?s life.? Appeared to benefit from increased knowledge of strategies to combat fear of failure and gaining self-awareness. Pt will continue IOP tx to prevent decompensation, improve daily functioning, and increase self-confidence. Narrative Note: []
--- NOTE | 2025-01-31 09:05 | BH.SGPN.GN ---
Behaviors/Verbalizations/Mental Status: [] Eye contact is good. Motor activity is appropriate. Appearance is casual. Speech is Appropriate. Mood is anxious. Affect is congruent. Thoughts are linear and logical. No evidence of psychosis. Reviewed daily check in sheet and no reports of suicidal ideations Client Response/Progress/Benefit: [] Pt participated at times during the group discussions. Attentive. Tearful during check-in. Reports she had a ? 3 hour panic attack? last night which was triggered by catastrophizing thoughts regarding her daughter. ? I thought I was going to have to go to the ER?. ? It was insane?. Feeling ? blah? today. No progress noted. Benefited form group support and encouragement. Will continue in IOP to prevent decompensation, stabilize anxiety, and improve functioning to return to work. Narrative Note: []
--- NOTE | 2025-01-31 10:10 | BH.SGPN.GN ---
Behaviors/Verbalizations/Mental Status: [] Client alert and oriented, casually dressed and groomed. Eye contact good. Motor activity appropriate. Speech within normal limits. Affect congruent, mood anxious. Thoughts linear, logical, no signs of hallucinations or delusions. Client Response/Progress/Benefit: [] Client responded well to session, attentive during psychoeducation on SMART goals (Specific, Measurable, Achievable, Realistic, and Time-bound) and engaged in group experiential activity. Participated in an interactive discussion with peers in which they worked together to define what a goal is and the benefits of having goals. Group identified benefits as; helps MH, improves motivation, improves confidence, and personal growth. Participated in interactive discussion in which group identified barriers to setting goals and following through with goals. Group barriers included health, lack of supports, making excuses, and avoidance. Benefited from increased awareness of benefits and strategies for goal-setting. Will continue in IOP tx to decrease anxious thoughts, improve distress tolerance, and prevent decompensation.
--- NOTE | 2025-01-31 11:10 | BH.SGPN.GN ---
Behaviors/Verbalizations/Mental Status: []Pt alert and oriented, neatly dressed and groomed. Eye contact good. Motor activity appropriate. Speech within normal limits. Affect congruent, mood anxious. Thoughts linear, logical, no signs of hallucinations or delusions Client Response/Progress/Benefit: [] Pt was engaged during discussion and willing to complete the worksheet challenging them to develop a personal SMART goal. Pt chose the goal of spending less time ruminating on negative self-talk this week. Pt identified anxiety and unhealthy environment as barriers. Identified solutions such as limiting unnecessary exposure and focusing on positive supports. Pt receptive to identifying solutions for these barriers and willing to begin working on this goal. Benefited from this group by developing a short-term SMART goal related to mental health. Will continue IOP tx to prevent decompensation, improve daily functioning, and increase mood stability. ? Narrative Note: []
--- NOTE | 2025-02-01 09:05 | BH.SGPN.GN ---
Behaviors/Verbalizations/Mental Status: []Pt alert and oriented, neatly dressed and groomed. Eye contact good. Motor activity appropriate. Speech within normal limits. Affect congruent, mood anxious. Thoughts linear, logical, no signs of hallucinations or delusions. Reviewed pt?s symptom tracker, no risk for suicidal ideation, plan, or intent 02/01/25. Client Response/Progress/Benefit: []Pt was an active participant in group discussions. Attentive. Able to identify mental health wins including ?I took my medication proactively? and pt feels that her has been trying to help her a lot. Pt also noted she is proud of how she managed after her panic attack. Pt's stressor today is ?I had a panic attack last night, but it helped me realize that I do need to cut out drinking.? The group offered pt suggests managing this stressor and emotional support which pt reported was helpful. Pt is feeling ?positive? this morning. Pt receptive to feedback from peers. Benefited from group support, encouragement, and feedback. Progress noted. Pt will continue IOP tx to prevent decompensation, gain healthy coping skills, and improve self-confidence. ??? Narrative Note: []
--- NOTE | 2025-02-01 11:10 | BH.SGPN.GN ---
Behaviors/Verbalizations/Mental Status: []Eye contact is good. Motor activity is appropriate. Appearance is casual. Speech is Appropriate. Mood is anxious. Affect is congruent. Thoughts are linear and logical. No evidence of psychosis. Client Response/Progress/Benefit: [] Pt was an attentive participant in group discussions and actively engaged during experiential activity. Participated with peers on identifying the connection between the experiential activity and utilization of stress management skills. Attentive during psychoeducation on the 4 A's (Avoid, adapt, alter, accept) of coping with stress. Pt engaged in self-reflection activity in which they identified one of the 4 A's to address one their top stressors. Benefited from increased awareness of stress management strategies. Pt will continue IOP to challenge distorted thoughts, improve consistent use of healthy coping skills, and prevent decompensation.
--- NOTE | 2025-02-01 15:21 | BH.MDN_ITS ---
Multi-Disciplinary Note Note 30-min Individual: Time Started:: 12:25 Date: 02/01/25 Purpose of session/treatment goals addressed:: To work on distress tolerance skills, boundary setting, and thought challenging. Eye Contact:: Good Motor Activity:: Appropriate Appearance:: Neat Speech:: Appropriate Mood:: Euthymic and Anxious Affect:: Congruent Thoughts:: Linear, Logical and No evidence of hallucinations/delusions noted Staff Interventions:: thought challenging, motivational interviewing, CBT techniques, mindfulness skills, strengths perspective and other (boundaries) Client Response:: Pt responded well to session, open to meeting with rosario fernandez. Pt reports she has been enjoying IOP so far, she finds it to be healing being around others who understand mental health. Pt stated her has been trying to be more understanding learn more about anxiety which is nice. Pt shared she had a panic attack two nights ago which had not happened in a while. Pt shared she was worried she would continue having them, but she did not. This helped pt see that drinking might be exacerbating her symptoms and making it harder for her medication to work. Pt reports she has a goal for herself to stop drinking and she plans to start now. Pt shared not going out to the bar with her will be helpful and she also thinks that getting back into exercise will be helpful. Pt noted that she is stressed about next week because of the holidays. Pt has step children and lately there has been a lot of tension, specifically with one of her stepsons because of his substance use and anger when he is drunk. Next week they are supposed to get together for [place] because that is what her wants. Discussed how pt wants to approach this and what she can do to prepare. Pt stated she wants to be there for her because he has been supporting her a lot lately. Pt recognized that she will need boundaries as well as a game plan should thing begin to go poorly. Pt plans to talk with her about this. Risks/Concerns:: Pt denies any active suicidal ideation, plan, or intent. Pt denies any thoughts of . Progress Toward Goals/Plan:: Pt is making progress towards tx goals AEB pt's report of choosing to reduce drinking as it exacerbates mental health symptoms and report of increased self-awareness. Pt also reports benefitting from being around others with similar symptoms and life-experiences. Pt will continue IOP tx to further reduce anxiety symptoms, gain healthy coping skills, and increase self-confidence. Time Stopped:: 12:55
--- NOTE | 2025-02-05 10:10 | BH.SGPN.GN ---
Behaviors/Verbalizations/Mental Status: [] Eye contact is good. Motor activity is appropriate. Appearance is casual. Speech is Appropriate. Mood is anxious. Affect is congruent. Thoughts are linear and logical. No evidence of psychosis. Client Response/Progress/Benefit: [] Pt was engaged and participating throughout, providing input and taking notes. Attentive during psychoeducation on anxiety and cognitive triangle. Participated in an interactive discussion on defining anxiety and identifying cognitive and physiological symptoms of anxiety. The group discussed helpful vs harmful anxiety. Pt along with peers worked together to identify common physical/physiological signs of anxiety which included: increase heart rate, stomach ache, dry mouth, numbness/tingling, shakiness, crying, sweating, etc. Pt identified personal warning signs as hyperventilating. Benefited from increased awareness and insight on anxiety and its impact. Will continue in IOP to prevent decompensation, increase healthy coping, and improve functioning to return to work. Narrative Note: []
--- NOTE | 2025-02-05 11:10 | BH.SGPN.GN ---
Behaviors/Verbalizations/Mental Status: []Eye contact is good. Motor activity is appropriate. Appearance is appropriate. Speech is Appropriate. Mood is anxious and engaged. Affect is congruent. Thoughts are linear and logical. No evidence of psychosis. Client Response/Progress/Benefit: [] Pt was an active participant AEB pt providing input and listening attentively to peers. Attentive during psychoeducation on mindfulness coping skills, body-based coping skills, and mind-based coping skills and their impact on reducing anxiety and improving overall mental health wellness. Group was able to identify self-soothing and mind-based coping skills which included: PMR, deep breathing, opposite action DDD, and meditation. Pt verbalized skill to make effort to use this week as: DDD and thoughts are thoughts not facts. Pt will continue IOP to reduce anxiety, increase self-confidence, and improve daily functioning. Narrative Note: []
--- NOTE | 2025-02-05 13:46 | BH.MDN_ITS ---
Multi-Disciplinary Note Note 30-min Individual: Time Started:: 12:00 Date: 02/05/25 Purpose of session/treatment goals addressed:: To practice mindfulness skills and identify strategies to give pt structure and routine. Eye Contact:: Good Motor Activity:: Appropriate Appearance:: Neat Speech:: Appropriate Mood:: Euthymic and Anxious Affect:: Congruent Thoughts:: Linear, Logical and No evidence of hallucinations/delusions noted Staff Interventions:: thought challenging, motivational interviewing, CBT techniques, mindfulness skills (practiced PMR), strengths perspective, goal setting and other (Discussed strategies to help build routine and fulfillment (ACES)) Client Response:: Pt responded well to session, open to meeting with therapist. Pt reports she has been doing well with not drinking and she has only been tempted once. Pt reports drinking had become a coping skill for stress and she was starting to see it becoming problematic. Pt shared she is gaining insight and skills in IOP and was willing to practice a mindfulness skill she learned about in group today. Pt did well with progressive muscle relaxation and reported she could practice this on her own. Pt shared she is struggling most right now with decision making regarding her job and building routine/structure at home. Pt stated she feels overwhelmed about work, but she does not feel ready yet to make a healthy decision about that. Pt receptive to working on stra tegies to form routine, purpose, and confidence. Discussed ACES (accomplishment, closeness, enjoyment, and self-care). Pt shared for accomplishment she wants to clean her makeup and hair drawers out. Closeness will be to write a support letter to herself. Enjoyment will be to use opposite action and go for a walk outside. Self-care will be to start washing her face at night. Pt feels that this will help her feel productive instead of anxious and like I'm in limbo. Risks/Concerns:: denies any active suicidal ideation, plan, or intent. Pt denies any thoughts of . Progress Toward Goals/Plan:: Pt reports responding well to the group structure, psychoeducation, and peer support. Pt has been refraining from alcohol and has now not drank in 8 days. Pt shared she is starting to use healthier coping skills at home. However, pt continues to struggle with frequent ruminations, excessive worry, and racing thoughts. Pt will continue IOP tx to prevent decompensation, improve daily functioning, and gain healthy coping skills. Time Stopped:: 12:35
--- NOTE | 2025-02-07 10:05 | BH.SGPN.GN ---
Behaviors/Verbalizations/Mental Status: []Eye contact is good. Motor activity is appropriate. Appearance is casual. Speech is Appropriate. Mood is anxious. Affect is congruent. Thoughts are linear and logical. No evidence of psychosis. Client Response/Progress/Benefit: [] Pt receptive to session AEB listening attentively to others and taking notes. Pt attentive and contributed throughout psychoeducation on the cognitive triangle and maintenance cycles. Pt engaged during group discussion reviewing the impact of daily activities and behaviors in either reinforcing unhealthy maintenance cycles and depression or assisting in reducing symptoms (?down? vs ?up? activities). Pt participated during interactive discussion in which the group identified their own common up activities (walking, cleaning, setting a timer, going on lunch dates, etc) and down activities (not texting people back, drinking to solve problems, and staying home). Appeared to benefit from increased awareness of current behaviors and impact these have on mental health. Will continue IOP tx to promote mood stability, increase self-confidence, and improve daily functioning. Narrative Note: []
--- NOTE | 2025-02-07 11:10 | BH.SGPN.GN ---
Behaviors/Verbalizations/Mental Status: [] Eye contact is good. Motor activity is appropriate. Appearance is casual. Speech is Appropriate. Mood is anxious. Affect is congruent. Thoughts are linear and logical. No evidence of psychosis. Client Response/Progress/Benefit: [] Pt responded well to session, attentive and engaged in group discussions and activity. Actively engaged in continued discussion about up activities and down activities. Active participant as group discussed values and the benefits that knowing one's values can have on one's mental health. Client shared an up activity they could practice today which was was walking. When asked what she learned from experiential group activity she stated I felt like I was going to fail and it was frustrating but I continued. Benefited from increased awareness of their up activities and how incorporating their values into behavioral activation goals can positively impact mental health. Will continue in IOP to prevent decompensation, increase healthy coping , and improve functioning to return to work. Narrative Note: []
--- NOTE | 2025-02-11 09:00 | BH.SGPN.GN ---
Behaviors/Verbalizations/Mental Status: [] Pt alert and oriented, neatly dressed and groomed. Eye contact good. Motor activity appropriate. Speech within normal limits. Affect constricted-tearful, mood depressed and anxious.Thoughts linear, logical, no signs of hallucinations or delusions. Reviewed pt?s symptom tracker, no risk for suicidal ideation, plan, or intent 02/11/25. Client Response/Progress/Benefit: []Pt was an active participant in group discussions. Attentive. Able to identify mental health wins including ?I can?t really think of any except I have a roof over my head and I got here today.? Pt's stressor today is ?I just had a really hard weekend with lots of down time and that?s driving me crazy.? The group offered pt suggests managing this stressor and emotional support which pt reported was helpful. Pt is feeling ?sad? this morning and was tearful. Pt receptive to feedback from peers. Benefited from group support, encouragement, and feedback. Progress noted. Pt will continue IOP tx to promote mood stability, reduce negative thinking patterns, and improve daily functioning. Narrative Note: []
--- NOTE | 2025-02-11 11:14 | BH.MDN_ITS ---
Multi-Disciplinary Note Note 30-min Individual: Time Started:: 10:45 Date: 02/11/25 Purpose of session/treatment goals addressed:: To practice calming skills and to help pt combat distorted thinking patterns. Eye Contact:: Good Motor Activity:: Restless Appearance:: Neat Speech:: Rambling Mood:: Anxious and Depressed Affect:: Congruent (tearful) Thoughts:: Racing, Circular and No evidence of hallucinations/delusions noted Staff Interventions:: thought challenging, CBT techniques, mindfulness skills (deep breathing), strengths perspective, taught coping skills (used dialectical thinking) and other (emotional validation and compassion) Client Response:: Pt responded well to session, open to meeting with therapist. Pt reports feeling overwhelmed today and stated she feels she will not be able to stay in group because she is so emotional. Pt tearful throughout session. Responded well to deep breathing in session. Pt shared her weekend started rough because pt was beating myself up over something and I drank which pt has been not drinking. Pt then had some conflict with her ex- and daughter. Pt shared she has been ruminating negatively about this and being over-critical of herself. Then during group today, pt got a phone call from her daughter who was angry at pt and hung up on me. Pt shared she feels I could have made it through, but the phone call sent me over. Pt receptive to gentle thought challenging by therapist. Pt responded well to dialectical thinking and self-compassion techniques which pt stated were helpful. Pt plans to remind herself I was doing the best I could back then in regards to her negative self-talk about her first marriage. Pt also encouraged to practice healthy self- care today which pt identified as going home from IOP early, taking a nap, and then focusing on accomplishing a few small tasks. Pt was still upset following the session, but she was no longer tearful. Risks/Concerns:: Pt denies any active suicidal ideation, plan, or intent. Pt denies any thoughts of . Progress Toward Goals/Plan:: Pt is making progress AEB her engagement and consistent attendance. Pt notes that she has been reducing the use of unhealthy coping skills, but she recently had a setback. Pt reports increased anxiety and depression this morning due to a situation with her daughter that happened over the weekend and then a phone call she received in group. Pt will continue IOP tx to prevent decompensation improve daily functioning, and increase distress tolerance skills. Time Stopped:: 11:15
--- NOTE | 2025-02-12 11:15 | BH.SGPN.GN ---
Behaviors/Verbalizations/Mental Status: []Pt alert and oriented, casually dressed and groomed. Eye contact good. Motor activity appropriate. Speech within normal limits. Affect congruent, mood anxious. Thoughts linear, logical, no signs of hallucinations or delusions. Client Response/Progress/Benefit: [] Pt responded well to session AEB taking notes and contributing to discussion throughout. Pt engaged as group continued discussion on distress tolerance and the mental health benefits of widening their overall Window of Tolerance. Pt engaged with group in experiential activity provided input on connections between variables in the activity and distress tolerance. Worked within small groups to identify strategies to increase distress tolerance and reduce hyper-arousal and hypo-arousal states. Identified wanting to begin implementing distress tolerance skills of: breaking the situation down in her head, maintaining self-awareness, and checking-in on her own body regularly. Pt appeared to benefit from gaining insight and learning strategies to increase distress tolerance. Pt will continue IOP tx to promote use of healthy coping skills, challenge negative self-talk, and prevent decompensation. Narrative Note: []
--- NOTE | 2025-02-13 15:08 | BH.TPR ---
Treatment Plan Review Demographics Date of Admission:: 01/21/25 Date of Treatment Plan Review:: 02/13/25 Admitting Diagnoses:: ROMIE F 41.1; MDD, recurrent, moderate, without psychosis. Current Diagnoses:: ROMIE F 41.1; MDD, recurrent, moderate, without psychosis. Patient Status Patient's Response to Treatment:: Pt has responded well to session AEB consistently attending IOP and engaging in both individual and group therapy sessions. Pt consistently completes homework provided from individual counseling. Pt contributes actively during group discussions, takes notes, appears to listen to others, and engages in group activities. Pt's overall DSM-5 scores have decreased by 20% since admission and she reports finding benefit from the coping skills so far and the group environment. Status of Current Problems and Symptoms: Pt's symptoms of anxiety continue to impact her daily functioning. Pt reports her sleep is still disturbed from anxiety as pt will wake up in the middle of the night with worries. Pt's primary work and family stress are ongoing and continue to impact pt's mental health as well. Pt's depression is reducing, but pt still reports lack of motivation, thoughts of worthlessness, and feeling excessive guilt. Progress Problem #1: Problem Name:: Anxiety and Panic Status of Goals:: Objective 1- in progress. Pt is working on having more dialectical thinking which will increase distress tolerance and she is gaining confidence in her choices which will help pt maintain boundaries. Objective 2- complete with ongoing work encouraged. Pt?s symptoms have only decreased by 13% since admission and she is still reporting severe anxiety. Team Recommendations:: Treatment team encourages pt to continue working on distress tolerance skills, reframing all or nothing thinking, grounding skills, and practicing self-care to reduce stress. Problem #2: Problem Name:: Depression Status of Goals:: objective 1- in progress. Pt reports using opposite action, reducing use of drinking when sad/depressed, and she has been working on thought challenging. Pt's depression has decreased by 17% since admission. Team Recommendations:: Team recommends continued goals and objectives to reinforce skills and reduce symptoms. Team recommends pt continue working on combating distortions, being more self-compassionate, and reducing use of unhealthy coping skills like drinking when sad.
--- NOTE | 2025-02-19 09:55 | BH.MDN ---
Multi-Disciplinary Note Note 45-min Individual: Time Started:: 09:10 Date: 02/19/25 Purpose of session/treatment goals addressed:: To work on goal #2 of pt's tx plan and to establish strategies to reduce drinking. Eye Contact:: Good Motor Activity:: Appropriate Appearance:: Casual Speech:: Appropriate Mood:: Euthymic and Anxious Affect:: Congruent Thoughts:: Linear, Logical and No evidence of hallucinations/delusions noted Staff Interventions:: thought challenging, CBT techniques, discharge planning, strengths perspective, reviewed DSM-5 and taught coping skills (dialectical thinking- homework on identifying good moments, neutral moments, and bad moments.) Client Response:: Pt responded well to session, open to meeting with therapist. Pt reports feeling better than yesterday and she notes this could be due to going to [place] tomorrow. Pt shared she has seen some progress in her ability to challenge thoughts, especially thoughts about how others could negatively perceive her. Pt shared she enjoys group and feels the topics have helped her gain insight. Pt stated she is still feeling worried a lot and expressed that she will wake up in the middle of the night worrying about oh anything. Pt gave examples of her worries from last night centered around her upcoming travels. Pt also noted that she is still all or nothing so she labels her days good or bad. Pt receptive to working on this and therapist taught pt a dialectical thinking technique to identify good, neutral, and bad moments rather than categorizing entire events/days. Pt feels this could also benefit her in changing her coping mechanisms and her relationship with drinking. Pt wants to work on reducing drinking when she is sad or has a distressing emotion, but she does not want to give up the happy moments she has with family when drinking. Discussed perimeters pt could set with herself i.e delaying drinking and journaling when upset, only drinking socially, etc. Pt also receptive to practicing self-compassion. Pt will be gone for the rest of the week and will return next week. Risks/Concerns:: Pt denies any active suicidal ideation, plan, or intent. Pt denies any thoughts of . Progress Toward Goals/Plan:: Pt is making progress towards her tx goals AEB her reduction of overall DSM-5 symptoms of 20% since admission. Pt reports she is caring less about what people might be thinking of her which is progress as well. However, pt shared she continues to ruminate negatively, wake up in the middle of the night with worries, and feel down. Pt receptive to homework and pt plans to talk with her medication provider next week to potentially get her medication changed. Pt will continue IOP tx to promote mood stability, increase distress tolerance, and improve daily functioning. Time Stopped:: 09:50
== END 2025-02-20 23:59 ==
LOC: BHIOP 08:00
PROVIDERS: PCP Family Medicine; Referring Provider Internal Medicine; Visit Provider Internal Medicine
DX: F41.1 Generalized anxiety disorder (principal); F33.1 Major depressive disorder, recurrent, moderate
CPT/HCPCS: S9480; 90832; 90834; 90853